=== PATIENT | male | born 1960 | race Caucasian/White ===

== ENCOUNTER 2022-01-28 13:54 | Emergency (ER) | payer BC ==
[2022-01-28 15:38] LABS: HEMOGLOBIN 15.3 gm/dl (14.0-17.5); RED BLOOD COUNT 5.42 M/UL (4.20-5.50)
[2022-01-28 16:01] LABS: BUN/CREATININE RATIO 17 (0-10)
== END 2022-01-28 17:40 | disposition home or self-care (01) ==
LOC: ER1 13:54
PROVIDERS: Emergency Medicine
DX: R33.9 Retention of urine, unspecified (principal); I10 Essential (primary) hypertension; E78.5 Hyperlipidemia, unspecified; F17.200 Nicotine dependence, unspecified, uncomplicated
CPT/HCPCS: 51702; 80053; 81001; 85025; 87086; 99283